=== PATIENT | male | born 1970 | race Caucasian/White ===

== ENCOUNTER 2017-04-11 08:13 | Inpatient (IN) | payer BC ==
[~2017-04-11] VITALS: Ht 193 cm; Wt 118.0 kg
--- NOTE | ~2017-04-11 | MR18 ---
[facility] A Service of [facility] & [facility] RADIOLOGY TEXT RESULTS PATIENT: LUCIO SCHNEIDER LOCATION: [address] : [birth year] UNIT #: [id number] AGE: [address]: Darnell Blackburn MD SEX: M ORDER DR: [id number] [facility] [address] [facility]. [place], [place] [address] [id number] MR#: [id number] #: [id number] NAME: LUCIO SCHNEIDER : 1970 SEX: M STUDY DATE/TIME: 04/12/2017 11:13 UNIT: [facility] ROOM: [facility] STUDY DESCRIPTION: MR Brain Wo Contrast Attending Physician: Darnell Blackburn M.D. Ordering Physician: Nanda Patterson M.D. Primary Care Physician: No Primary Care Physician MRI CENTER REPORT This report is preliminary unless electronic signature is present. EXAM MRI brain without HISTORY 47-year-old male patient with history of hypertension, diabetes. He had onset of left arm numbness and weakness at 07:40 this morning. Patient was hypertensive on arrival and has received altepase. Left arm numbness 45 minutes prior to arrival, 04/11/2017. Symptoms have since resolved. TECHNIQUE MRI of the brain was performed without contrast using routine 1.5-T imaging technique. COMPARISON There is a CT angiogram of the head and neck from 04/11/2017 for comparison. There is earlier noncontrast head CT also. FINDINGS There is no evidence for a recent ischemic insult on the diffusion series. There is vague signal abnormality, appreciated best on FLAIR imaging in the posterosuperior right prefrontal cortex, about a centimeter in dimension. This subtle focus of signal abnormality could be an area of now treated insults. This area of involvement could be associated with the neurologic deficit indicated in the history. There is no Chiari-I malformation. No extraaxial fluid collection. Incidental note made of cavum septum pellucidum and vergae. The mastoid air cells are clear. The paranasal sinuses show mild ethmoid mucosal thickening and mucosal thickening in the left maxillary sinus, but no air-fluid level. The major arterial intracranial flow voids are maintained. The ventricles are normal in size and configuration for age group. There is mild periventricular white matter signal abnormality which is nonspecific, but likely due to small vessel disease, particularly STS. [facility] A Service of [facility] & [facility] RADIOLOGY TEXT RESULTS PATIENT: LUCIO SCHNEIDER LOCATION: [address] : [birth year] UNIT #: [id number] AGE: [address]: Darnell Blackburn MD SEX: M ORDER DR: given the patient has risk factors. There is no MRI evidence for intracranial hemorrhage. IMPRESSION 1. There is no evidence for recent infarct. No restricted diffusion is seen. There is subtle signal abnormality appreciated within the right posterosuperior frontal premotor cortex about a centimeter in dimension which could be a site of treated insult in the setting of recent TPA administration. Area of involvement could correspond to symptoms in the left upper extremity. 2. Otherwise, mild nonspecific white matter disease likely due to small vessel disease, particularly, given the patient's risk factors. STAT * RESULT Dictated by... Jesica Hernández M.D. THIS IS AN ELECTRONICALLY VERIFIED REPORT Jesica Hernández M.D. at 04/12/2017 5:40 PM Elizabeth TD: 04/12/2017 12:07 JOB #: [id number] MRI CENTER REPORT Page 1 of 1 COPY
--- NOTE | ~2017-04-11 | CT18 ---
[facility] A Service of [facility] & [facility] RADIOLOGY TEXT RESULTS PATIENT: LUCIO SCHNEIDER LOCATION: [place] [address]-16 : [birth year] UNIT #: [id number] AGE: [address]: Beatriz Serrano MD SEX: M ORDER DR: [id number] [address] [address] [id number] I MR#: [id number] Acc #: [id number] NAME: LUCIO SCHNEIDER : 1970 SEX: M STUDY DATE/TIME: 04/11/2017 8:47 UNIT: [facility] ROOM: [facility] STUDY DESCRIPTION: CT Angio Head Stroke Attending Physician: Beatriz Serrano M.D. Ordering Physician: Cristofer Levin M.D. Primary Care Physician: Primary Care Physician No MEDICAL IMAGING REPORT This report is preliminary unless electronic signature is present EXAM CT scan of the head and neck with contrast with carotid CT angiography FINDINGS Result text under order number [id number]. Please see this order for result text. Dictated by... Kevin Dolan M.D. THIS IS AN ELECTRONICALLY VERIFIED REPORT Kevin Dolan M.D. at 04/11/2017 4:35 PM RLF/to TD: 04/11/2017 16:26 JOB #: [id number] MEDICAL IMAGING REPORT Page 1 of 1 COPY
--- NOTE | ~2017-04-11 | A ---
[facility] Nutrition Therapy DATE: 04/12/17 Patient: LUCIO SCHNEIDER Physician: PEARL Address: [address] Room/Bed: [address], Zip: [place] [address] Admit Date: 04/11/17 Date of : [birth year] Height: 6 4 Weight: 260 118 NUTRITIONAL ASSESSMENT: REASON: NPO status in ICU, diagnosis Admitting dx: 47 y/o male admitted with likely CVA PMH: HTN, HLD, DM, PE, Gomez's Palsy Anthropometrics: Ht: 76", Wt: 118 kg, BMI: 31 (stage I obese) Labs: glucose 160, POC 111-282, A1C 7.9, ALT 48, no lipid panel available Meds: Lipitor, novolog, glucotrol Assessment: Chart reviewed, events noted. See admitting dx and PMH as stated above. Patient admitted with suspected stroke, s/p TPA with good response. He is now back at baseline. He is currently NPO for HEIDI and MRI this morning and wants him discharged very soon. He ate dinner fine last night per nursing and is not appropriate for diet education today due to NPO status. Of note, he is stage I obese and could benefit from weight loss and diet education once more appropriate, if willing. See recs below. Dx: 1) Stage I obese r/t PMH, diet, lifestyle AEB BMI 31. 2) Altered nutrition related lab values r/t uncontrolled DM AEB A1C 7.9, glucose POC 111-282. Intervention: See recs below Monitoring, Evaluation and Goals: 1. Tolerance of oral diet advancement with no s/s of dysphagia. 2. Gradual weight loss towards a healthy BMI range. 3. Improvement in labs (reduce A1C, glucose < 200 md/dL). Monitor: per protocol, criteria to determine if above goals met Recommendations: 1. Advance to healthy heart/60g carb diet after MRI today. 2. Patient would benefit from weight loss and diet education once diet advances, if he is willing. Please consult for education prior to discharge if desired. [facility] Nutrition Therapy DATE: 04/12/17 Patient: LUCIO SCHNEIDER Physician: PEARL Address: [address] Room/Bed: [address], Zip: [place] [address] Admit Date: 04/11/17 Date of : [birth year] Height: 6 4 Weight: 260 118 3. Suggest checking lipid panel. RD will follow Mild-moderate nutrition risk Respectfully, Emily Morales RD, NATHAN [employer] [facility] cc: client file
--- NOTE | ~2017-04-11 | EKG ---
PATIENT: LUCIO SCHNEIDER UNIT #: [id number] Ventricular Rate: 71 BPM Atrial Rate: 71 BPM P-R Interval: 180 ms QRS Duration: 88 ms Q-T Interval: 390 ms QTC Calculation(Bezet): 423 ms P Newton: 23 degrees Calculated R Newton: -2 degrees Calculated T Newton: 8 degrees Diagnosis Line: Normal sinus rhythm Diagnosis Line: Possible Inferior infarct , age undetermined Diagnosis Line: Borderline ECG Diagnosis Line: No previous ECGs available Diagnosis Line: Confirmed by RICH KAUR MD ([id number]) on 04/11/2017 Diagnosis Line: 7:57:45 PM INTERPRETING MD: NATASHA MORROW
--- NOTE | ~2017-04-11 | HP ---
Unit #: [id number] #: [id number] Patient: LUCIO SCHNEIDER [id number] [place] [address] [facility] [place], [place] [address] [id number] MR#: [id number] NAME: LUCIO SCHNEIDER. ROOM: [facility] Age: 47 Sex: M Admission Date: 04/11/2017 : 1970 Attending Physician: Beatriz Serrano M.D. Primary Care Physician: No Primary Care Physician HISTORY AND PHYSICAL CHIEF COMPLAINT Numbness left arm. HISTORY OF PRESENT ILLNESS The patient is a 47-year-old male with a past medical history of hypertension, hyperlipidemia, diabetes, pulmonary embolism who presented to the emergency department for evaluation of the above. The patient states that he was in his usual state of health until this morning around 7:40 when he arrived to work and states that he felt abnormal. He states that he noticed numbness in his left arm and that his left hand felt cold. He also had weakness involving the left arm. He denies any similar problem. No fever, no headache, no cough or cold symptoms, no bowel or bladder problems. No difficulty swallowing. He also noticed some numbness involving the left face. Upon arrival in the emergency department, initial blood pressure was 167/104, pulse 66, NIH score was 3. He was a Code Stroke. He had a head CT that showed nothing acute. He received alteplase. He is being admitted to [facility] for evaluation and further treatment. PAST MEDICAL HISTORY 1. Admission to [facility] in July 2016 for surgery (no records). 2. Diabetes. 3. Hypertension. 4. History of Gomez's palsy. 5. Pulmonary embolism in 1996. The patient states that he underwent right upper and middle lobectomies. He states that he was on Coumadin for a few months. This was all in [place]. PAST SURGICAL HISTORY 1. Right upper and middle lobectomy. 2. Back surgery. 3. Hand surgery. 4. Knee surgery. 5. Hip surgery. 6. Hernia repair. 7. Cardiac catheterization more than five years ago (no records). Normal per the patient. SOCIAL HISTORY The patient lives with his . 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 He Unit #: [id number] #: [id number] Patient: LUCIO SCHNEIDER denies tobacco, alcohol or illicit drug use. He typically walks without assistance. FAMILY HISTORY Notable for his mother having hypertension. ALLERGIES No known allergies. HOME MEDICATIONS 1. Lisinopril 10 mg daily. 2. Metformin 1000 mg b.i.d. 3. Lipitor 20 mg daily. 4. Januvia 100 mg daily. 5. Wellbutrin 75 mg daily. 6. Glucotrol 5 mg twice daily. 7. Lamictal 200 mg daily. REVIEW OF SYSTEMS A complete review of systems is negative except as indicated in the HPI. The patient states that he had a stress test more than five years ago. He also had a cardiac catheterization as stated above. DIAGNOSTIC TESTS CT of the head shows nothing acute. EKG showed normal sinus rhythm with a rate of [address] angiogram of the head and neck showed no hemodynamically significant stenosis. Complete blood count is completely normal. INR is 1. Comprehensive metabolic panel notable for glucose of 222. AST and ALT are 52 and 62 respectively. Troponin is less than 0.05. PHYSICAL EXAM VITAL SIGNS: Temperature is 97.9, pulse 66, respirations 19, blood pressure 167/104. Most recently 139/90. Oxygen saturation 98% on room air. GENERAL: The patient is a very pleasant, male who is awake and alert, in no acute distress. HEENT: The head is atraumatic. Mucous membranes are moist. NECK: Supple. Trachea is midline. CARDIOVASCULAR: Regular rate and rhythm. LUNGS: Clear to auscultation bilaterally with no increased work of breathing. ABDOMEN: Soft, nontender with bowel sounds present in all four quadrants. EXTREMITIES: Nontender with no pedal edema. NEURO: The patient is awake and alert. There is no facial asymmetry. Sensation is subjectively intact involving the face. Tongue is midline. Shoulder shrug is normal. There is no appreciable pronator drift. Sensation involving the upper extremities is subjectively intact. 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 PSYCH: Mood and affect are normal. The patient is cooperative. SKIN: Skin of examined areas is warm and dry. ASSESSMENT Unit #: [id number] #: [id number] Patient: LUCIO SCHNEIDER The patient is a 47-year-old male with: 1. Cerebrovascular accident, status post alteplase. 2. Left upper extremity weakness/numbness, resolved. 3. Uncontrolled diabetes with initial glucose of 222. 4. Hypertension. 5. Transaminitis. 6. History of pulmonary embolism, status post right upper and middle lobectomies. The patient was on chronic anticoagulation with Coumadin for a few months. 7. Hyperlipidemia. 8. Obesity with a BMI of 31. 9. History of Gomez's palsy. PLAN 1. Admit to ICU. 2. NPO until speech evaluation. 3. Normal saline at 75 mL/hour. 4. Speech therapy to evaluate and treat. 5. tPA protocol per neurology. 6. Consult Dr. Patterson regarding stroke. 7. Stroke protocol per neurology. 8. Serial cardiac enzymes. 9. Hemoglobin A1c. 10. Low dose sliding scale insulin with Accu-Cheks q.6 hours. 11. Repeat labs in the morning including INR. 12. SCDs for DVT prophylaxis. Thirty-one minutes critical care time spent in the care of this patient (11:50 to 12:21 p.m.). Dictated by Leanne Estrada/sonu TD: 04/11/2017 12:26 JOB #: [id number] HISTORY AND PHYSICAL Page 1 of 1 X Beatriz Serrano MD X HISTORY AND PHYSICAL
--- NOTE | ~2017-04-11 | CO ---
Unit #: [id number] #: [id number] Patient: LUCIO SCHNEIDER [id number] [facility]. [place] [address]. [place], [place] [address] [id number] MR#: [id number] NAME: LUCIO SCHNEIDER. ROOM: [facility] Age: 47 Sex: M Admission Date: 04/11/2017 : 1970 Attending Physician: Darnell Blackburn M.D. Primary Care Physician: Primary Care Physician No Consultation Date: 04/11/2017 CONSULTATION REPORT ADDITIONAL REFERRING PHYSICIAN Cristofer Levin M.D. REASON FOR CONSULTATION Acute stroke type symptoms. PATIENT IDENTIFICATION This is a 47-year-old right-handed white male, who was actually evaluated via [employer] robot for code stroke and I saw him in the ICU 16 personally. PROBLEM LIST He was brought in because he had an acute onset of left-sided weakness, numbness, ataxia, and felt different. He had prior history of going to [facility] in 07/2016 for some sort of surgery. He is diabetic. He is hypertensive. He may have obstructive sleep apnea. He has history of Gomez palsy. He has pulmonary embolism/pulmonary infarct. He underwent right upper and middle lobe lobectomies. He was on Coumadin for a few months and that was stopped, that was in 1996. He has had back surgery. He had hand surgery and knee surgery. He had hip surgery. He had hernia repair. He had cardiac cath. He says that he has had 14 surgeries in his lifetime. 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 He went to school and he noticed numbness in his left arm and has felt cold and he felt different, so he came in here and his symptoms were improving, but yet when I saw him on the robot, he was showing that it was different. His symptoms were minimal weakness or feeling strained on the left side. I got a call from Dr. Levin at 8:27 and then at 8:35, I was talking to the warehouse logistics manager and also was on the robot and at 8:42, I called the ER and told then that symptoms were improving, so I will rather do a quick CTA and if still he has symptoms, then we will consider tPA because this will be a measurable deficit. So apparently, whenever he came back from the CT scanner, he has drift on the left side. He also noticed some numbness on the left side of the tongue and cheek, so this became a measurable deficit and he was treated with tPA and he is now essentially back to normal. His random glucose was 222 and initially when he came in, his blood pressure was as high as 167 systolic and 107 diastolic, it is doing fine right now. He does not take any aspirin. He is a nonsmoker. Unit #: [id number] #: [id number] Patient: LUCIO SCHNEIDER Except for this PE/pulmonary infarction, he has no other neurologic issues or stroke-like situation. No family history of conditions like that. As I mentioned before, he is doing great. PAST MEDICAL HISTORY As discussed above. PAST SURGICAL HISTORY As discussed above. ALLERGIES None. HOME MEDICATIONS Lisinopril 10 mg daily, metformin 1000 mg b.i.d., Lipitor 20 mg daily, Januvia 100 mg daily, Wellbutrin 75 mg daily, Glucotrol 5 mg b.i.d., and Lamictal 200 mg daily. FAMILY HISTORY Grandmother had strokes in old age. Mother has hypertension. SOCIAL HISTORY He is . 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 He denies tobacco, alcohol, or drug use. REVIEW OF SYSTEMS GENERAL: Detailed review of system was attempted and the patient denies any sleep issues, weight changes, fever, chills, rigors, or sweats. He may have sleep apnea. HEENT: No headaches, double vision, earache, runny nose, or sore throat. CARDIOVASCULAR: No chest pain, clubbing, cyanosis, orthopnea, or palpitation. PULMONARY: As discussed above, prior PE/infarction. GASTROINTESTINAL: No abdominal pain, nausea, vomiting, diarrhea, or constipation. GENITOURINARY: No genitourinary symptom. EXTREMITIES: No extremity problems otherwise. He has had some hip surgery in the past, so that may be causing a little bit of deficit on the left side. BACK: No back issues. PSYCHIATRIC: No psychotic issue. NEUROLOGIC: As discussed. No other hematologic, dermatologic, or endocrine issues, though I cannot rule out hypercoagulable state. PHYSICAL EXAMINATION VITAL SIGNS: Temperature 98.4, pulse 63, respirations 24, blood pressure 139/90. No pain was reported. O2 sats of 97% to 98%. Weight of 259 pounds and BMI was 31. NEUROLOGIC: The patient is awake. He is alert. He is oriented. He can name and he can follow commands. No right/left confusion. No finger agnosia. Unit #: [id number] #: [id number] Patient: LUCIO SCHNEIDER Cranial examination demonstrates full gamble of vision to confrontation. Eye movements are conjugate. I did not see any ptosis. I did not see any nystagmus. Extraocular movements are intact. Sensation on the face and scalp are normal. Strength of muscles of facial expression are normal. Hearing seemed to be intact bilaterally. Tongue was midline. Uvula was midline. Palate elevation normal. Head turning and shoulder shrugs were unremarkable. Motor examination demonstrated normal bulk, tone. Strength was essentially, 5/5. Sensory examination intact for soft touch and pain sensation. No extinction was seen. Romberg was not evaluated. Gait examination was deferred. I could not get any reflexes. Toes are equivocal. Coordination was normal. DIAGNOSTIC STUDIES LABORATORY RESULTS: Reviewed. His hemoglobin A1c was 7.9. White count is 10, platelet count is 177, H and H are okay. IMAGING STUDIES: Reviewed. IMPRESSION This is a very interesting 47-year-old gentleman, who had abrupt onset of left-sided ataxia and numbness and some cheek numbness also, so he definitely had measurable neurologic deficits and the decision was made to treat him because his symptoms initially improved, but then got worse again. Now, he is back to normal, so alteplase was given. We are going to follow stroke protocol. His head CT was okay and CTA was okay. I may end up doing a full hypercoagulable workup and HEIDI. We will put him on aspirin and Lipitor after doing all the testing anyway and we will see how things go. I talked to his who was at the bedside. I talked to Dr. Serrano. I talked to Dr. Levin several times and please see our orders for a stroke followup and I will follow him while he is here. Call me for any other questions, issues, or concerns. Dictated by... Leanne Carrillo/cora TD: 04/13/2017 13:47 JOB #: [id number] Unit #: [id number] #: [id number] Patient: LUCIO SCHNEIDER CONSULTATION REPORT Page 1 of 1 X Nanda Patterson MD CONSULTATION REPORT
--- NOTE | ~2017-04-11 | CT72 ---
[facility] A Service of [facility] RADIOLOGY TEXT RESULTS PATIENT: LUCIO SCHNEIDER LOCATION: [address] : [birth year] UNIT #: [id number] AGE: [address]: Darnell Blackburn MD SEX: M ORDER DR: [id number] [place] [id number] [place], [place] [address] [id number] I MR#: [id number]: [id number] NAME: LUCIO SCHNEIDER. : 1970 SEX: M STUDY DATE/TIME: 04/11/2017 8:35 UNIT: [facility] ROOM: [facility] STUDY DESCRIPTION: CT Head Wo Contrast Stroke Attending Physician: Beatriz Serrano M.D. Ordering Physician: Cristofer Levin M.D. Primary Care Physician: No Primary Care Physician MEDICAL IMAGING REPORT This report is preliminary unless electronic signature is present EXAM Unenhanced head CT, 04/11/2017 PROCEDURE Axial unenhanced head CT. This CT exam was performed with one or more of the following radiation dose reduction techniques: automatic exposure control, adjustment of mA and/or kV according to patient size, and iterative reconstruction. COMPARISON None. Clinical history is left arm numbness for 45 minutes. TECHNIQUE Axial noncontrast images were obtained from the skull base to the vertex. This CT exam was performed with one or more of the following radiation dose reduction techniques: automatic exposure control, adjustment of mA and/or kV according to patient size, and iterative reconstruction. FINDINGS Ventricular size and configuration are normal. There is no evidence of acute infarct or hemorrhage. There are no extraaxial fluid collections. No mass lesion or mass effect is seen. There are no skull fractures. IMPRESSION Normal noncontrast head CT. Dictated by... Kurt Gandhi M.D. THIS IS AN ELECTRONICALLY VERIFIED REPORT Kurt Gandhi M.D. at 04/15/2017 4:09 PM [facility] A Service of [facility] RADIOLOGY TEXT RESULTS PATIENT: LUCIO SCHNEIDER LOCATION: [facility] CICCU3-16 : [birth year] UNIT #: [id number] AGE: [address]: Darnell Blackburn MD SEX: M ORDER DR: Manan TD: 04/11/2017 14:02 JOB #: [id number] MEDICAL IMAGING REPORT Page 1 of 1 COPY
--- NOTE | ~2017-04-11 | CT24 ---
[facility] A Service of [facility] & [facility] RADIOLOGY TEXT RESULTS PATIENT: LUCIO SCHNEIDER LOCATION: [place] [id number] : [birth year] UNIT #: [id number] AGE: [address]: Beatriz Serrano MD SEX: M ORDER DR: [id number] [facility] [address]. [place], [place] [address] [id number] MR#: [id number] Acc #: [id number] NAME: LUCIO SCHNEIDER : 1970 SEX: M STUDY DATE/TIME: 04/11/2017 8:47 UNIT: [facility] ROOM: [facility] STUDY DESCRIPTION: CT Angio Neck Stroke Attending Physician: Beatriz Serrano M.D. Ordering Physician: Cristofer Levin M.D. Primary Care Physician: Primary Care Physician No MEDICAL IMAGING REPORT This report is preliminary unless electronic signature is present EXAM CT scan of the head and neck with contrast with carotid CT angiography HISTORY Numbness left arm beginning 45 minutes prior to arrival TECHNIQUE Thin section imaging was obtained through the mid mediastinum to the top of head with contrast. 100 mL of Isovue was used. CT angiography was performed with thick sliding MIPs, curved planar reformats and 3-D volumetric imaging with surface shaded volume shaded display. This CT exam was performed with one or more of the following radiation dose reduction techniques: automatic exposure control, adjustment of mA and/or kV according to patient size, and iterative reconstruction. FINDINGS Extravascular structures are remarkable for somewhat numerous but normal-sized cervical lymph nodes bilaterally. These nodes are probably reactive. No pathologically enlarged or abnormally enhancing nodes are seen. The CT angiographic study shows wide patency of the great vessels off of the arch. In the posterior circulation both vertebral arteries are widely patent and approximately the same size. The basilar artery is widely patent. In the carotid circulation there is mild intimal thickening and minimal soft plaque seen at both carotid bifurcations with no stenosis by NASCET criteria. The cervical internal carotids up through the siphons are widely patent. In the intracranial circulation, there is no evidence of aneurysm vascular malformation or major branch vessel occlusion. There is origin of STS. [facility] A Service of [facility] & [facility] RADIOLOGY TEXT RESULTS PATIENT: LUCIO SCHNEIDER LOCATION: [address] : [birth year] UNIT #: [id number] AGE: [address]: Beatriz Serrano MD SEX: M ORDER DR: the right posterior cerebral arteries, which is a normal variant. IMPRESSION Minimal soft plaque at both carotid bifurcations with no stenosis by NASCET criteria. Otherwise negative. Reactive cervical lymph nodes. Dictated by... Kevin Dolan M.D. THIS IS AN ELECTRONICALLY VERIFIED REPORT Kevin Dolan M.D. at 04/11/2017 4:35 PM RLF/see TD: 04/11/2017 16:24 JOB #: [id number] MEDICAL IMAGING REPORT Page 1 of 1 COPY
--- NOTE | ~2017-04-11 | DS ---
Unit #: [id number] #: [id number] Patient: LUCIO SCHNEIDER [id number] [address] [place], [place] [address] [id number] MR#: [id number] NAME: LUCIO SCHNEIDER. ROOM: [facility] Age: 47 Sex: M Admission Date: 04/11/2017 : 1970 Discharge Date: 04/12/2017 Attending Physician: Darnell Blackburn M.D. Primary Care Physician: No Primary Care Physician DISCHARGE SUMMARY DISCHARGE DIAGNOSES 1. Aborted stroke. 2. Type 2 diabetes. 3. Hypertension. 4. Hyperlipidemia. 5. Obesity. HOSPITAL COURSE Patient is a 47-year-old male admitted through [facility] Emergency Department on 04/11/17 secondary to numbness in his left arm that was associated with some weakness. Based on his complaints in the emergency department, neurology was contacted and the patient was ultimately treated with alteplase. Afterward, patient was admitted to the ICU. Shortly after administration of alteplase, his symptoms resolved. CT angiogram of the head and neck show minimal soft plaque at both carotid bifurcations but no stenosis. MRI was then performed and is consistent with aborted stroke. Given resolution of the symptoms and successful treatment with alteplase, patient is being discharged home at this time. He has been started on aspirin, and the dose of his Lipitor has been increased. He underwent HEIDI, which failed to show any potential causes of stroke. DISCHARGE MEDICATIONS 1. Aspirin 325 mg daily. 2. Metformin 1,000 mg p.o. b.i.d., which should be held for 1 week, given administration of IV contrast dye during this admission. 3. Lipitor 40 mg daily. 4. Glucotrol 5 mg p.o. b.i.d. 5. Lamictal 200 mg daily. 6. Januvia 100 mg with breakfast. 7. Wellbutrin 75 mg daily. 8. Lisinopril 10 mg daily. FOLLOWUP 1. The patient should follow up with Dr. Hayward in 1-2 weeks for event monitor and stress test. 2. Should follow up with his primary care provider at the earliest available appointment. 3. Additionally, should follow up with Dr. Aron Banks in 4 weeks. Unit #: [id number] #: [id number] Patient: LUCIO SCHNEIDER Dictated by... Leanne Archuleta/austin TD: 04/13/2017 12:08 JOB #: [id number] DISCHARGE SUMMARY Page 1 of 1 X Darnell Blackburn MD X DISCHARGE SUMMARY
[2017-04-11 08:43] LABS: BASOPHIL% 0.5 % (0-2.5); EOSINOPHIL# 0.3 X10e3 (0-0.7); EOSINOPHIL% 3.1 % (0.0-7.0); HEMATOCRIT 41.7 % (38.0-50.0); HEMOGLOBIN 14.4 gm/dL (13.0-16.0); LYMPHOCYTE# 2.3 X10e3 (1.0-3.5); LYMPHOCYTE% 22.7 % (17.0-45.0); MEAN CELL VOLUME 87.9 FL (83-96); MEAN CORPUSCULAR HEMOGLOBIN 30.4 PG (28-34); MEAN CORPUSCULAR HGB CONC 34.5 g/dL (30-36); MEAN PLATELET VOLUME 10.1 FL (6.5-11.5); MONOCYTE# 0.5 X10e3 (0-1.0); MONOCYTE% 5.1 % (3.0-12.0); NEUTROPHIL# 6.9 X10e3 (1.5-7.1); NEUTROPHIL% 68.6 % (40-75); PLATELET COUNT 177 X10e3 (140-420); RED BLOOD COUNT 4.74 X10e (3.90-5.60); RED CELL DISTRIBUTION WIDTH 13.5 % (11.0-15.5)
[2017-04-11 08:45] LABS: DIFF IND NO
[2017-04-11 09:01] LABS: PARTIAL THROMBOPLASTIN TIME 25.7 SECONDS (23.5-31.3); PROTHROMBIN TIME (PATIENT) 10.8 SECONDS (10.0-11.7)
[2017-04-11 09:07] LABS: ALBUMIN SERUM 4.4 g/dL (3.5-5.0); BILIRUBIN, DIRECT 0.2 mg/dL (0.0-0.2); BILIRUBIN,INDIRECT 0.5 mg/dL (0.0-0.9); BILIRUBIN,TOTAL 0.7 mg/dL (0.2-2.0); CALCIUM SERUM 9.7 mg/dL (8.4-10.2); GLOM FILT RATE Estimated 88.6 mL/min (>60); POTASSIUM 4.4 mmol/L (3.5-5.1); PROTEIN TOTAL SERUM 7.9 g/dL (6.0-8.3)
[2017-04-11 10:00] LABS: POC - CKMB <1.0 ng/mL (0.0-7.9); POC - TROPONIN <0.05 ng/mL (<=0.05)
[2017-04-11] MEDS ORDERED: METFORMIN HCL1000 M1 PO (11:03)
[2017-04-11] MEDS ORDERED: LISINOPRIL10 MG PO (11:03)
[2017-04-11] MEDS ORDERED: LIPITOR40 MG PO (11:03)
[2017-04-11] MEDS ORDERED: JANUVIA PO (11:04)
[2017-04-11] MEDS ORDERED: WELLBUTRIN75 M1 PO (11:04)
[2017-04-11] MEDS ORDERED: LAMICTAL PO (11:05)
[2017-04-11] MEDS ORDERED: GLUCOTROL PO (11:05)
[2017-04-11 12:11] LABS: POC - CREATININE 0.87 mg/dL (0.64-1.27); POC - GFR >60.0 mL/min (>60)
[2017-04-11] MEDS ORDERED: MR (15:14)
[2017-04-11 18:31] LABS: %MB 1.9 % (0.0-4.0); MB 1.8 ng/ml
[2017-04-12 00:26] LABS: %MB 1.7 % (0.0-4.0); MB 1.4 ng/ml
[2017-04-12 05:37] LABS: HEMATOCRIT 40.2 % (38.0-50.0); HEMOGLOBIN 13.6 gm/dL (13.0-16.0); MEAN CELL VOLUME 88.7 FL (83-96); MEAN CORPUSCULAR HGB CONC 33.8 g/dL (30-36); MEAN PLATELET VOLUME 10.7 FL (6.5-11.5); RED BLOOD COUNT 4.53 X10e (3.90-5.60); RED CELL DISTRIBUTION WIDTH 13.4 % (11.0-15.5); WHITE BLOOD COUNT 9.4 X10e3 (4.0-10.5)
[2017-04-12 05:53] LABS: INR 1.1; PARTIAL THROMBOPLASTIN TIME 26.1 SECONDS (23.5-31.3); PROTHROMBIN TIME (PATIENT) 11.4 SECONDS (10.0-11.7)
[2017-04-12 06:08] LABS: ALBUMIN SERUM 3.6 g/dL (3.5-5.0); BILIRUBIN,TOTAL 0.6 mg/dL (0.2-2.0); BUN/CREATININE RATIO 11.25; CALCIUM SERUM 9.3 mg/dL (8.4-10.2); CREATININE SERUM 0.8 mg/dL (0.6-1.4); GLOM FILT RATE Estimated 105.7 mL/min (>60); POTASSIUM 3.7 mmol/L (3.5-5.1); PROTEIN TOTAL SERUM 6.6 g/dL (6.0-8.3)
[2017-04-12 10:30] LABS: CHOLESTEROL 134 mg/dL (0-200); HDL CHOLESTEROL 38 mg/dL (29-75); LDL CHOLESTEROL 79 mg/dL (-130); LDL/HDL RATIO 2 RATIO (0-4); TRIGLYCERIDES 84 mg/dL (10-160)
[2017-04-12] MEDS ORDERED: ASPIRIN ENTERI325 M1 PO (14:04)
[2017-04-13 23:07] LABS: PROTEIN C ACTIVITY 153 % (70-180); PROTEIN S 128 % (70-150)
[2017-04-16 11:45] LABS: CARDIOLIPIN IGG (LUPUS) <14 GPL (<=14); CARDIOLIPIN IGM (LUPUS) <12 MPL (<=12); DRVVT MIX INTERP (LUPUS) Not Indicated (()); PROTROMBIN TIME LUPUS 10.9 sec (9.0-11.5); PT (LA MIX STUDY) 10.9 sec (<=11.5); PTT-LA 36 sec (<=40); PTT-LA SCREEN (LUPUS) 36 sec (<=40); THROMBIN TIME LUPUS 18 sec (13-19); dRVVT SCREEN (LUPUS) 36 sec (<=45)
[2017-04-17 22:59] LABS: ANA SCREEN Negative (Negative)
== END 2017-04-12 14:40 | disposition home or self-care (01) | DRG 62 ==
LOC: CED 08:13 → CEDOF 09:45 → CED 10:29 → CEDOF 10:29 → CICCU3 11:39 → CEDOF 11:39 → CICCU3 04-12 07:35
PROVIDERS: Emergency Medicine; Family Medicine; Psychiatry & Neurology Neurology
PROC: 3E03317 Introduction of Other Thrombolytic into Peripheral Vein, Percutaneous Approach (ICD-10-PCS; principal; 2017-04-11)
PROC: B325YZZ Computerized Tomography (CT Scan) of Bilateral Common Carotid Arteries using Other Contrast (ICD-10-PCS; 2017-04-11)
PROC: B328YZZ Computerized Tomography (CT Scan) of Bilateral Internal Carotid Arteries using Other Contrast (ICD-10-PCS; 2017-04-11)
PROC: B24BZZ4 Ultrasonography of Heart with Aorta, Transesophageal (ICD-10-PCS; 2017-04-12)
DX: I63.9 Cerebral infarction, unspecified (principal); G81.94 Hemiplegia, unspecified affecting left nondominant side; E11.65 Type 2 diabetes mellitus with hyperglycemia; I10 Essential (primary) hypertension; Z79.84 Long term (current) use of oral hypoglycemic drugs; E78.5 Hyperlipidemia, unspecified; E66.9 Obesity, unspecified; Z68.31 Body mass index [BMI] 31.0-31.9, adult; G51.0 Bell's palsy; R27.0 Ataxia, unspecified; R74.0 Nonspecific elevation of levels of transaminase and lactic acid dehydrogenase [LDH]; Z86.711 Personal history of pulmonary embolism; Z82.49 Family history of ischemic heart disease and other diseases of the circulatory system
CPT/HCPCS: 70450; 70496; 70498; 70551; 80048; 80053; 80061; 80076; 81240; 81241; 81291; 82550; 82553; 82565; 82947; 83036; 84484; 85025; 85027; 85301; 85303; 85306; 85610; 85613; 85652; 85670; 85730; 86038; 86039; 86140; 86146; 86147; 86148; 92610; 93005; 93312; 96365; 97161; 97165; 99291; G8978-GP; G8979-GP; G8980-GP; G8987-GO; G8988-GO; G8989-GO; G8996-GN; G8997-GN; G8998-GN; J1815; J2250; J2997; J3010; Q9967